=== PATIENT | male | born 2000 | race Caucasian/White ===

== ENCOUNTER → 2021-06-20 | Outpatient (CLI) | payer BC | END | disposition home or self-care (01) | LOC: COVID19 14:59 | PROVIDERS: ATTEND Student in an Organized Health Care Education/Training Program | DX: U07.1 COVID-19 (principal) ==

== ENCOUNTER 2021-10-27 12:52 | Emergency (ER) | payer BC ==
[~2021-10-27] VITALS: Wt 81.6 kg
== END 2021-10-27 14:41 | disposition home or self-care (01) ==
LOC: ED 12:52
DX: S61.011A Laceration without foreign body of right thumb without damage to nail, initial encounter (principal); S60.011A Contusion of right thumb without damage to nail, initial encounter; W23.0XXA Caught, crushed, jammed, or pinched between moving objects, initial encounter; Y93.89 Activity, other specified; Y92.89 Other specified places as the place of occurrence of the external cause; Y99.8 Other external cause status